=== PATIENT | male | born 1970 | race Caucasian/White ===

== ENCOUNTER 2022-10-07 21:37 | Emergency (ER) | payer SELFPAY ==
[~2022-10-07] VITALS: Ht 188 cm; Wt 104.0 kg
[2022-10-07 23:05] LABS: BASOPHILS % 0.8 % (0.0-2.0); EOSINOPHILS % 0.7 % (0.0-5.0); HEMATOCRIT. 41.6 % (42.0-52.0); HEMOGLOBIN. 13.9 g/dL (14.0-18.0); LYMPHOCYTES % 15.8 % (20.0-50.0); MEAN CORPUSCULAR HEMOGLOBIN 31.6 pg (28.0-32.0); MEAN CORPUSCULAR VOLUME 94.6 fL (80.0-94.0); MEAN PLATELET VOLUME 6.6 fl (7.4-10.4); MONOCYTES % 5.7 % (2.0-8.0); PLATELET 66 x1000/uL (130-400); RED CELL DISTRIBUTION WIDTH 18.2 % (11.6-14.6)
[2022-10-07 23:16] LABS: CHLORIDE 108 mEq/L (98-107)
[2022-10-07 23:28] LABS: ETHANOL BLOOD 345 mg/dL
[2022-10-08] MEDS ORDERED: KETOROLAC 60MG/2ML VIAL IM STA (01:04)
[2022-10-08] MEDS ORDERED: FENTANYL CITRATE/PF 50MCG/ML 2ML VIAL IM ONE (02:15)
[2022-10-08] MEDS ORDERED: ONDANSETRON HCL 4MG/2ML INJ IV ONE ×2 (03:15→03:30)
[2022-10-08] MEDS ORDERED: PROPOFOL 200MG/20ML VIAL IV PRN (03:30)
[2022-10-08] MEDS ORDERED: HYDROCODONE/ACETAMINOPHEN 5/325MG TABLET PO STA (04:35)
[2022-10-08] MEDS ORDERED: KETAMINE HCL 50 MG/ML 10ML IV ONE (05:15)
[2022-10-08] MEDS: KETAMINE HCL 50 MG/ML 10ML IV NR ×2 (05:50→05:54)
[2022-10-08] MEDS ORDERED: MIDAZOLAM HCL 2 MG/2 ML VIAL ONE ×2 (05:50→05:51)
[2022-10-08] MEDS ORDERED: MIDAZOLAM HCL 2 MG/2 ML VIAL IV ONE (06:00)
[2022-10-08] MEDS ORDERED: NAPR-681 PO (07:03)
[2022-10-08] MEDS ORDERED: HYDR-4001 PO (07:03)
[2022-10-08 09:45] VITALS: BP 151/58
== END 2022-10-08 10:16 | disposition home or self-care (01) ==
LOC: ER 21:37
DX: S43.005A Unspecified dislocation of left shoulder joint, initial encounter (principal); S42.292A Other displaced fracture of upper end of left humerus, initial encounter for closed fracture; W18.39XA Other fall on same level, initial encounter; Y93.89 Activity, other specified; Y92.89 Other specified places as the place of occurrence of the external cause; Y99.8 Other external cause status; F10.129 Alcohol abuse with intoxication, unspecified; Y90.0 Blood alcohol level of less than 20 mg/100 ml
CPT/HCPCS: 23650; 36415; 70450; 70486; 71045; 73030; 73060; 73080; 80053; 80320; 85025; 93005; 96372; 96374; 96375; 99152; 99285; J1885; J2250; J2704; J3010; J3490; Z7610; 80305; L3670; G0480